=== PATIENT | male | born 1955 | race Caucasian/White ===

== ENCOUNTER 2016-12-30 19:44 | Emergency (ER) | payer BC ==
[2016-12-30 20:01] VITALS: BP 142/77
[2016-12-30] MEDS ORDERED: Aspirin Low Dose CHEW TAB* 81 MG PO ONE (20:06)
--- NOTE | 2016-12-30 20:06 | UC ---
Cardiac HPI - HPI Summary HPI Summary: onset of chest pain within the hour, not sever, but bothersome enough that he wanted to come for an evaluation. Pressure sensation, difffernet from his usual reflux. No dizziness, no radiation of pain, no diaphoresis. Under a lot of stress. Long hx of hypertension, controlled with enalapril and HCTZ. Does not take aspirin or statin. He does use fish oil. Does use ibuprofen regularly for knee OA pain. + FH of heart disease with father having MD in the past. Negative stress test about 3 years ago. Last echo might have shown a leaky valve. NO regular aerobic exercise. 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 Hx of normal EKG. 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 Genitourinary: Negative Motor: Negative Neurovascular: Negative Musculoskeletal: Negative Neurological: Negative Psychological: Negative All Other Systems Reviewed And Are Negative: Yes Physical Exam Triage Information Reviewed: Yes Appearance: Pain Distress - mildly uncomfortable, mildly anxious., Obese Vital Signs Reviewed: Yes Eye Exam: Normal ENT: Positive: Pharynx normal Neck: Positive: Supple, Nontender, No Lymphadenopathy Respiratory: Positive: Lungs clear, Normal breath sounds Cardiovascular: Positive: RRR, No Murmur Abdomen Description: Positive: Nontender, No Organomegaly Musculoskeletal Exam: Normal Neurological: Positive: Alert, Muscle Tone Normal Psychological Exam: Normal Skin Exam: Normal Diagnostics - EKG Cardiac Rate: NL Cardiac Rhythm: Sinus: Normal Ectopy: None ST Segment: Non-Specific - ST elevation in V1 - Assessment/Plan Course Of Treatment: to ER by private car for evaluation, rule out coronary. Aspirin given - Differential Diagnoses - Chest Pain Differential Diagnosis/HQI/PQRI: Acute MD, ACS, Angina - Clinical Impression Provider Diagnoses: chest pain, possible acute coronary syndrome. - Physician Notifications Discussed Patient Care With: Dr. Rain at [facility] Time Discussed With Above Provider: 20:15 Discharge - Discharge Plan Condition: Stable Disposition: TRANS HIGHER LVL OF CARE FAC
== END 2016-12-30 20:25 | disposition short-term general hospital (02) ==
LOC: UCCORT 19:44
DX: R07.89 Other chest pain (principal); I10 Essential (primary) hypertension; E66.9 Obesity, unspecified
CPT/HCPCS: 93005; 99213; A9270-GY; G0463

== ENCOUNTER 2018-02-11 12:38 | Emergency (ER) | payer BC ==
[2018-02-11 12:58] VITALS: BP 125/62
--- NOTE | 2018-02-11 13:09 | UC ---
Dental HPI - HPI Summary HPI Summary: C/O left lower molar tooth pain, starting yesterday. Better after a dose of amoxicillin. - History of Current Complaint Chief Complaint: UCDentalProblem Stated Complaint: DENTAL PAIN Time Seen by Provider: 02/11/18 13:01 Hx Obtained From: Patient Onset/Duration: Sudden Onset, Lasting Days - 1, Still Present Severity: Mild Pain Intensity: 3 Aggravating Factor(s): Heat, Cold, Chewing Related History: Previous Dental Care on Same Tooth - Has bridge on the tooth. - Allergies/Home Medications Allergies/Adverse Reactions: Allergies Allergy/AdvReac Type Severity Reaction Status Date / Time No Known Allergies Allergy Verified 02/11/18 12:59 Home Medications: Home Medications Aspirin [Aspirin Childrens 81 MG] 81 mg PO DAILY 02/11/18 [History Confirmed ] PMH/Surg Hx/FS Hx/Imm Hx Cardiovascular History: Hypertension - Surgical History Surgical History: Yes Surgery Procedure, Year, and Place: knee - Family History Known Family History: Positive: Cardiac Disease, Hypertension Negative: Diabetes - Social History Occupation: Employed Full-time Lives: With Family Alcohol Use: None Substance Use Type: None Substance Use Comment - Amount & Last Used: caffeine Smoking Status (MU): Former Smoker Have You Smoked in the Last Year: No When Did the Patient Quit Smoking/Using Tobacco: mid 40's Household Exposure Type: Cigarettes - Immunization History Most Recent Influenza Vaccination: [id number] Review of Systems Constitutional: Chills ENT: Dental Pain Is Patient Immunocompromised?: No All Other Systems Reviewed And Are Negative: Yes Physical Exam Triage Information Reviewed: Yes Appearance: Well-Appearing, No Pain Distress, Well-Nourished Vital Signs: Initial Vital Signs Temp 97.6 F 02/11/18 12:53 Pulse 70 02/11/18 12:53 Resp 16 02/11/18 12:53 BP 125/62 02/11/18 12:53 Pulse Ox 96 02/11/18 12:53 Vital Signs Reviewed: Yes Eyes: Positive: Conjunctiva Clear ENT: Positive: Pharynx normal, TMs normal Dental: Positive: Cellulitis @ - #20 Neck exam: Normal Respiratory Exam: Normal Cardiovascular Exam: Normal Musculoskeletal Exam: Normal Neurological Exam: Normal Psychological Exam: Normal Skin Exam: Normal Dental Complaint Course/Dx - Differential Dx/Diagnosis Differential Diagnosis/Dx: Dental Abscess, Dental Caries, Fractured Tooth, Gingivitis Provider Diagnoses: Dental abscess Discharge - Sign-Out/Discharge Documenting (check all that apply): Discharge - Discharge Plan Condition: Stable Disposition: HOME Prescriptions: Penicillin VK 500 MG TAB(NF) [Penicillin VK 500 mg Tab] 500 mg PO QID #40 tab Patient Education Materials: Dental Abscess (ED), Penicillin V (By mouth) Referrals: Bakari Souza MD [Primary Care Provider] - - Billing Disposition and Condition Condition: STABLE Disposition: HOME Images Dental: 1 - Erythema with swelling and gum tenderness around 20-21
== END 2018-02-11 13:18 | disposition home or self-care (01) ==
LOC: UCCORT 12:38
DX: K04.7 Periapical abscess without sinus (principal); Z87.891 Personal history of nicotine dependence
CPT/HCPCS: 99212; G0463